=== PATIENT | male | born 1965 | race Caucasian/White ===

== ENCOUNTER 2019-07-06 13:44 | Outpatient (CLI) | payer MEDICARE ==
--- NOTE | 2019-07-06 16:44 | MRI ---
MRI OF ABDOMEN WITH AND WITHOUT IV CONTRAST: 07/06/19 HISTORY: Lesion of liver. FINDINGS: Correlation is made with the CT scan of 02/24/19. There is a 13 mm nonenhancing T2 hyperintense lesion in the dome of the right lobe of the liver consi stent with cysts. The spleen, pancreas, adrenal glands, and right kidney are normal. There is a 2.5 c m cortical cyst arising from the medial aspect of the left kidney with high T2 signal and no postcont rast enhancement. No free fluid or lymphadenopathy is seen. There is no evidence of aneurysmal dilatation of the abdom inal aorta. Small bowel loops are not abnormally dilated. The bone marrow signal is normal. IMPRESSION: 1. Hepatic cyst. 2. Left renal cyst. POS: [facility]
== END 2019-07-06 13:45 | disposition home or self-care (01) ==
LOC: SCSMRI 13:44
PROVIDERS: ATTEND Internal Medicine Gastroenterology
DX: K76.89 Other specified diseases of liver (principal); N28.1 Cyst of kidney, acquired
CPT/HCPCS: 74183

== ENCOUNTER 2023-09-16 13:37 | Outpatient (CLI) | payer MEDICARE | END 2023-09-16 13:38 | disposition home or self-care (01) | LOC: BICULT 13:37 | PROVIDERS: ATTEND Podiatrist | DX: M72.2 Plantar fascial fibromatosis (principal); M79.672 Pain in left foot; R93.7 Abnormal findings on diagnostic imaging of other parts of musculoskeletal system | CPT/HCPCS: 76882 ==